=== PATIENT | male | born 1945 | race Two or more races ===

== ENCOUNTER 2017-09-27 18:47 | Emergency (ER) | payer MEDICARE, BC ==
[~2017-09-27] VITALS: Ht 175.3 cm; Wt 63.5 kg
[2017-09-27 18:53] VITALS: BP 106/57
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
[2017-09-27 19:36] VITALS: BP 109/60
[2017-09-27 19:38] VITALS: BP 109/60
--- NOTE | 2017-09-29 18:37 | Cardiology Report ---
APPROVED REPORT EKG Measurement Heart [id number] Normal sinus rhythm Normal ECG
== END 2017-09-27 19:38 | disposition home or self-care (01) ==
LOC: EDSEX 18:47 → EDBD 18:47 → EMR 19:06
DX: R55 Syncope and collapse (principal); E11.9 Type 2 diabetes mellitus without complications
CPT/HCPCS: 93005; 99283